=== PATIENT | male | born 1995 | race Caucasian/White ===

== ENCOUNTER 2018-05-23 09:39 | Emergency (ER) | payer MEDICAID ==
[~2018-05-23] VITALS: Ht 165.1 cm; Wt 113.4 kg
[2018-05-23 09:44] VITALS: BP 152/95
[2018-05-23] MEDS ORDERED: CORTISPORIN OTI10 M2 OTIC (10:09)
== END 2018-05-23 10:13 | disposition home or self-care (01) ==
LOC: M.ERS 09:39
DX: H60.91 Unspecified otitis externa, right ear (principal); H61.23 Impacted cerumen, bilateral; Z88.1 Allergy status to other antibiotic agents

== ENCOUNTER 2019-08-19 01:09 | Emergency (ER) | payer MEDICAID ==
[~2019-08-19] VITALS: Ht 170.2 cm; Wt 113.4 kg
[~2019-08-19 01:09] MED LIST: CORTISPORIN OTI10 M2 OTIC
[2019-08-19] MEDS ORDERED: KEFLEX500 M1 PO (01:58)
[2019-08-19] MEDS ORDERED: CIPRODEX OTIC7.5 ML OTIC (01:58)
[2019-08-19] MEDS ORDERED: HYDROCODON-ACE1 EAC8 PO (01:59)
[2019-08-19 02:05] VITALS: BP 128/76
== END 2019-08-19 02:05 | disposition home or self-care (01) ==
LOC: M.ERS 01:09
DX: H61.23 Impacted cerumen, bilateral (principal); Z88.1 Allergy status to other antibiotic agents

== ENCOUNTER 2020-05-17 01:59 | Emergency (ER) | payer MEDICAID ==
[~2020-05-17] VITALS: Ht 167.6 cm; Wt 119.3 kg
[~2020-05-17 01:59] MED LIST changes: +CIPRODEX OTIC7.5 ML OTIC; +HYDROCODON-ACE1 EAC8 PO; +KEFLEX500 M1 PO
[2020-05-17 02:07] VITALS: BP 165/81
[2020-05-17] MEDS ORDERED: EAR WAX REMOVAL15 ML EA. EAR (02:21)
== END 2020-05-17 02:27 | disposition home or self-care (01) ==
LOC: M.ERS 01:59
DX: H61.23 Impacted cerumen, bilateral (principal); Z88.1 Allergy status to other antibiotic agents